=== PATIENT | male | born 1990 | race Caucasian/White ===

== ENCOUNTER 2020-11-18 16:40 | Emergency (ER) | payer SELFPAY ==
[~2020-11-18] VITALS: Ht 180.3 cm; Wt 63.0 kg
== END 2020-11-18 20:13 | disposition home or self-care (01) ==
LOC: ED 16:40
DX: S60.453A Superficial foreign body of left middle finger, initial encounter (principal); W45.8XXA Other foreign body or object entering through skin, initial encounter; F17.200 Nicotine dependence, unspecified, uncomplicated
CPT/HCPCS: 73130; 90471; 90715; 99283-25